=== PATIENT | male | born 1940 | race Caucasian/White ===

== ENCOUNTER 2023-11-22 18:52 | Emergency (ER) | payer OTHER ==
[2023-11-22] MEDS ORDERED: SODIUM CHLORIDE 500 ML IV STA (19:36)
[2023-11-22 19:39] VITALS: RESP 20; TEMP 98.7; BMI 22.1
[2023-11-22 19:55] LABS: HEMATOCRIT 36.1 % (35.4-49); MCH 32.1 pg (25.7-33.7); MCHC 33.2 g/dl (32.0-35.9); MEAN CELL VOLUME 96.8 fl (80-96); MEAN PLT VOLUME 7.7 fl (7.5-11.1); PLATELET COUNT 245.5 10^3/uL (134-434); RBC 3.73 10^6/uL (4.00-5.60); WHITE BLOOD COUNT 7.7 10^3/uL (4.0-10.8)
[2023-11-22 20:09] LABS: PLATELET ESTIMATE ADEQUATE
[2023-11-22 20:20] LABS: BILIRUBIN,TOTAL 0.6 mg/dl (0.2-1); CALCIUM 8.8 mg/dl (8.5-10.1); POTASSIUM 3.8 mmol/L (3.5-5.1); TOT PROT 6.3 g/dl (6.4-8.2)
[2023-11-22 20:49] VITALS: BP 146/102; PULSE 104
== END 2023-11-22 21:38 | disposition home or self-care (01) ==
LOC: FER 18:52
PROC: 3E0337Z Introduction of Electrolytic and Water Balance Substance into Peripheral Vein, Percutaneous Approach (ICD-10-PCS; principal; 2023-11-22)
DX: R09.81 Nasal congestion (principal); J02.9 Acute pharyngitis, unspecified; R50.9 Fever, unspecified; M79.10 Myalgia, unspecified site; R05.9 Cough, unspecified; U07.1 COVID-19
CPT/HCPCS: 0241U-QW; 36415; 71045-TC-FY; 80053; 85027; 99284-25